=== PATIENT | female | born 1995 | race Hispanic/Latino ===

== ENCOUNTER 2017-01-24 20:25 | Emergency (ER) | payer OTHER ==
[~2017-01-24] VITALS: Ht 167.6 cm; Wt 68.2 kg
[2017-01-24 20:39] VITALS: BP 115/73; PULSE 71; RESP 16; O2SAT 100
--- NOTE | 2017-01-24 21:26 | ED.REPORT ---
HPI-Abd Pain F Under 40 Date of Service January 24, 2017 ED Provider: Dr. Mike Busby M.D. A healthy 21 year old female at approximately ten weeks presents to the ED with intermittent RUQ abdominal pain onset yesterday. The pain radiates into her right flank and right thigh. Associated symptoms include nausea, chills , and generalized abdominal cramping. The patient denies vomiting, diarrhea, hematochezia, melena, vaginal bleeding, dysuria, hematuria, constipation, acid reflux sensation, or other symptoms. The patient's last normal menstrual period was 11/10/16. Nursing Notes Stated Complaint: SIDE PAIN Chief Complaint: Female Abdominal Pain Nursing Notes Reviewed: Yes Allergies: Coded Allergies: No Known Allergies (Unverified , 01/24/17) General Time Seen by MD: 21:25 Chief Complaint Abdominal pain Hx Obtained From: Patient Arrived By: Walk-in Onset Occurred: Yesterday Symptom Duration: Intermittent Location: : Diffuse (Cramping): RUQ Quality: Painful Radiation: : Flank left Severity: Current: Moderate Severity: Maximum: Moderate Status: Positive - ED urine HCG Para: 2 Pertinent Negative: Relieved by nothing Context Related History: Reports: Current Recent Healthcare: No recent doctor visit Past Medical History Past Medical History None reported Past Surgical History None reported Smoking History Unknown if Ever Smoker Social History Other Social History: Good social support Ambulatory Status Independent Review of Systems Review of Systems Note: - Acid reflux sensation Constitutional: Reports: Chills, Denies: Fever Respiratory: Denies: Non-productive cough, Shortness of breath GI: Reports: Abdominal pain (RUQ, generalized cramping), Nausea, Denies: Constipation, Diarrhea, Hematochezia, Melena, Vomiting Female: Reports: Flank pain (Right), Denies: Dysuria, Hematuria, Vaginal bleeding - abnl Musculoskeletal: Reports: Extremity pain (Right thigh) Complete sys rev & neg: except as marked. Physical Exam Initial Vital Signs Vital Signs (First) Date Time Temp Pulse Resp B/P Pulse Ox O2 Delivery O2 Flow Rate FiO2 01/24/17 20:39 36.8 71 16 115/73 100 Room Air Initial VS: Reviewed Head / Eyes: Atraumatic, Normocephalic ENT: Conjunctiva normal, No scleral icterus Neck: Supple, Full range of motion Skin: Warm, Dry, No cyanosis Neurologic: Alert, Oriented, Nonfocal Psychiatric: Mood/affect normal, Behavior normal, Normal thought content General/Constitutional: Awake, Alert Respiratory / Chest: Breath sounds NL, Breath sounds = bilat, No respiratory distress Cardiovascular: Heart rate NL, Regular rhythm, Heart sounds NL Abdomen: Soft Tenderness/Guarding/Rebound: Positive: Tender LLQ..., Negative: Tender RUQ... Back: Inspection NL, No CVA tenderness Interpretation & Diagnostics Bedside US: Bile duct normal in size. Contracted gallbladder with some density that may be gallstones. URINE : Positive URINE DIPSTICK: Bedside Urine Specific [place] * 1.020 Bedside Urine pH * 5 Bedside Urine Leukocyte Esterase * Negative Bedside Urine Nitrite * Negative Bedside Urine Protein * Negative Bedside Urine Glucose * Normal Bedside Urine Ketones * Negative Bedside Urine Urobilinogen * Normal Bedside Urine Bilirubin * Negative Bedside Urine Occult Blood * Negative Urine to Lab * Yes Lab Results Interpretation Result Diagram: 01/24/17212201/24/172122 Test 01/24/17 21:14 01/24/17 21:23 Urine Color Yellow (YELLOW) Urine Appearance Clear (CLEAR,HAZY) Urine pH 6.0 (5.0-8.0) Urine Specific [place] 1.024 (1.003-1.035) Urine Protein Negativemg/dL (NEG,TRACE) Urine Glucose (UA) Negativemg/dL (NEGATIVE) Urine Ketones Negativemg/dL (NEGATIVE) Urine Occult Blood Negative (NEGATIVE) Urine Nitrite Negative (NEGATIVE) Urine Bilirubin Negative (NEGATIVE) Urine Urobilinogen Normalmg/dL (NORMAL) Urine Leukocyte Esterase Negative (NEGATIVE) Urine RBC 0-2/hpf (0-2) Urine WBC 0-5/hpf (0-5) Urine Epithelial Cells Many/hpf (NONE-MOD) Urine Crystals None seen (NONE SEEN) Urine Bacteria Moderate/hpf (NONE-FEW) Urine Hyaline Casts None/lpf (NONE) Urine Granular Casts None seen (NONE SEEN) Urine Waxy Casts None seen (NONE SEEN) Urine Red Blood Cell Casts None seen (NONE SEEN) Urine White Blood Cell Casts None seen (NONE SEEN) Urine Mucus None seen (None Seen) Urine Trichomonas None seen (NONE SEEN) Urine Yeast None (NONE SEEN) Urine Culture Reflexed Indicated Hold Urine Received (Received) White Blood Count 9.3th/mm3 (3.8-10.1) Red Blood Count 4.61mil/mm3 (3.90-5.20) Hemoglobin 13.1g/dL (12.0-15.6) Hematocrit 39.3% (35.0-46.0) Mean Corpuscular Volume 85.2fL (81-100) Mean Corpuscular Hemoglobin 28.4pg (27.0-35.0) Mean Corpuscular Hemoglobin Concent 33.3% (32.0-37.0) Red Cell Distribution Width 13.7% (12.3-15.4) Platelet Count 234bil/L (150-400) Neutrophils (%) (Auto) 60.6% (40-74) Lymphocytes (%) (Auto) 31.3% (14-46) Monocytes (%) (Auto) 6.7% (4-12) Eosinophils (%) (Auto) 1.0% (0-5) Basophils (%) (Auto) 0.2% (0-3) Sodium Level 136mEq/L (134-144) Potassium Level 4.1mEq/L (3.5-5.2) Chloride Level 99mEq/L (97-108) Carbon Dioxide Level 25mmol/L (18-29) Blood Urea Nitrogen 15mg/dL (6-20) Creatinine 0.65mg/dL (0.57-1.00) Estimat Glomerular Filtration Rate 166mL/min (>59) Glucose Level 102mg/dL (60-99) Calcium Level 9.8mg/dL (8.5-10.1) Magnesium Level 2.2mg/dL (1.6-2.6) Total Bilirubin 0.3mg/dL (0.0-1.2) Aspartate Amino Transf (AST/SGOT) 23U/L (0-50) Alanine Aminotransferase (ALT/SGPT) 18U/L (0-32) Alkaline Phosphatase 65U/L (25-150) Total Protein 7.3g/dL (6.4-8.4) Albumin 4.2g/dL (3.4-5.0) Lipase 29U/L (13-60) HCG Beta Subunit [id number]/mL Hold Ervin Top Tube Received (Received) US Focused OB IMPRESSION: 6 week 3 day single viable IUP. Normal ovaries. Report transmitted to ED by Roberto Morgan M.D. at 01/24/2017 - 10:54:00 PM PDT Exam Performed by: Allied health pract Exam Interpreted by: Radiologist Re-Eval/Medical Decision Med Decision/Clinical Course Med Decision/Clinical Course: 21-year-old currently unknown dates, presents with right upper quadrant abdominal pain and some moderate left lower quadrant abdominal pain. Character of her upper quadrant pain suggest gallstones. Her gallbladder is quite contracted and cannot be evaluated effectively with ultrasound presently. Ultrasound of the fetus was accomplished and shows a six week three day IUP with heartbeat of 109 and no evidence of ectopic , or free fluid. She plans follow up with [facility] regarding her . Plan ultrasound of the right upper quadrant and fasting state to evaluate for gallstones. Suspect intermittent biliary colic is the issue. No evidence of hematuria, stone, or UTI. Discharged in stable condition. Re-Evaluation/Progress : Time of Eval: 22:48 Patient Status: Condition improved Re-Evaluation/Progress Note: Bedside US performed. Discussed with patient lab and US results, diagnosis, and plan for discharge. Follow-up and return to the ER instructions given. Patient agrees with plan for care and all questions were addressed. Counseled Regarding: Diagnosis, Lab results, Need for follow-up, When/why to return to ED Discharge & Departure Primary Impression: Abdominal pain Abdominal location: unspecified location Qualified Code: R10.9 - Unspecified abdominal pain Additional Impressions: First trimester Biliary colic Disposition: Home Discharge Condition All VS Reviewed: Yes Condition: Improved Patient Instructions: Acute Abdominal Pain (ED), Biliary Colic (ED), Low Fat Diet (ED) Additional Instructions: You have a normal-appearing at six weeks and three days. I suspect you have gallstones, but cannot prove that at this point. Ultrasound is done as a fasting test in the morning, to avoid contracted gallbladder, as was present tonight. Call first thing in the morning to arrange follow-up ultrasound this morning. Do not eat anything or drink anything after midnight tonight. Follow-up with local physician at [facility] residency clinic and at the women's clinic Return if any immediate issues, such as worsening pain, vomiting, bleeding, or other new symptoms. Referrals: NOPCP (PCP) [facility],JAYLA Byrd Attestation Portions of this note were transcribed by Shital King. I, Dr. Busby, personally performed the history, physical exam, and medical decision-making; I reviewed and confirmed the accuracy of the information in the transcribed note. Signed by: Rochelle Glass, 01/25/2017, 00:45 copies to: [facility] Residency Clinic; [facility],[place] Mike Meier MD January 24, 2017 21:26 SHITAL KING January 24, 2017 21:35
[2017-01-24 21:33] LABS: BASOPHILS % (AUTO) 0.2 % (0-3); MONOCYTES % (AUTO) 6.7 % (4-12); Mean Corpuscular Hemoglobin 28.4 pg (27.0-35.0); Mean Corpuscular Volume 85.2 fL (81-100); NEUTROPHILS % (AUTO) 60.6 % (40-74); Platelet Count 234 bil/L (150-400)
[2017-01-24 21:58] LABS: Magnesium 2.2 mg/dL (1.6-2.6)
[2017-01-24] MEDS ORDERED: Magnesium Hydroxide 10 mL Oral Concentration PO ONE (23:00)
[2017-01-24 23:12] LABS: APPEARANCE,URINE CLEAR (CLEAR,HAZY); COLOR,URINE YELLOW (YELLOW); OCCULT BLOOD,URINE NEGATIVE (NEGATIVE); UROBILINOGEN,URINE NORMAL (NORMAL)
--- NOTE | 2017-01-25 08:21 | DRSVH ---
PROCEDURE: US OB<14 WKS INDICATIONS: 10 weeks, left adnexal pain OUTSIDE/PRIOR DATING DATA: Last menstrual period (LMP): 12/11/16. LMP-based estimated date of delivery (CHETNA): 09/17/17. First dating scan (date and location): This examination. Estimated date of delivery (CHETNA) from first dating scan: 09/16/17. TECHNIQUE: Real-time scanning was performed of the fetus and maternal pelvic organs, with image documentation. Endovaginal scanning was also performed to better visualize the fetus and maternal ovaries. COMPARISON: None. FINDINGS: Embryo: [employer] Ultrasound Procedure Report [place] Rump Length: 5.80 mm Gestational Age (CRL): 6 weeks, 3 days Summary Fetus Summary Heart Rate: 109 bpm Comments: A normal yolk sac is noted. No perigestational bleeds. Measurement variability in dating: +/- 4 weeks by LMP, +/- 7 days by mean sac diameter (use before 6 weeks gestation if crown-rump length not able to be measured), +/- 5 days by crown-rump length (6-12 weeks gestation). Maternal organs: Ovaries are grossly unremarkable. Limited images through the kidneys demonstrate n o hydronephrosis. IMPRESSION: Single living intrauterine fetus, with an CHETNA of 09/16/17, concordant with LMP as above Dictated by: Adán Sadler M.D. on 01/25/2017 at 8:16 Approved by: Adán Sadler M.D. on 01/25/2017 at 8:20
== END 2017-01-24 23:09 | disposition home or self-care (01) ==
LOC: SED 20:25
DX: O99.611 Diseases of the digestive system complicating pregnancy, first trimester (principal); K80.50 Calculus of bile duct without cholangitis or cholecystitis without obstruction; Z3A.01 Less than 8 weeks gestation of pregnancy

== ENCOUNTER 2017-02-27 21:17 | Emergency (ER) | payer OTHER ==
[~2017-02-27] VITALS: Ht 167.6 cm; Wt 66.8 kg
[2017-02-27 21:20] VITALS: BP 114/81; PULSE 85; RESP 16; O2SAT 99
--- NOTE | 2017-02-27 21:59 | ED.REPORT ---
HPI-Abd Pain F Under 40 Date of Service Feb 27, 2017 ED Provider: Fransico Manning DO Pt is an 11 week 21 year old female with a history of miscarriage (1x) who presents to the ED with exacerbated abdominal cramping onset today. She denies vaginal bleeding. The pt was seen in the clinic today for abdominal cramping, and they were unable to find a heartbeat. The pt reports that that she does not know her blood type. Nursing Notes Stated Complaint: VERY BAD CRAMPS/ 11 WKS Chief Complaint: Female Abdominal Pain Nursing Notes Reviewed: Yes Allergies: Coded Allergies: ibuprofen (Unverified Allergy, Unknown, 02/27/17) General Time Seen by MD: 21:59 Chief Complaint Abdominal pain Hx Obtained From: Patient Arrived By: Walk-in Sudden in Onset?: No Onset Occurred: 5 - 8 hours ago Symptom Duration: Since onset Location: : Diffuse Quality: Cramping, Painful Severity: Current: Moderate Severity: Maximum: Moderate Recent Healthcare: Recent doctor visit Similar Sx Previous: Yes Past Medical History Past Medical History Miscarriage - 1x Past Surgical History None reported Smoking History Unknown if Ever Smoker Social History Alcohol Use: Denies alcohol use Drug Use: Denies drug use Other Social History: Good social support Ambulatory Status Independent Review of Systems Constitutional: Denies: Fever Respiratory: Denies: Non-productive cough GI: Reports: Abdominal pain Female: Denies: Vaginal bleeding - abnl Complete sys rev & neg: except as marked. Physical Exam Initial Vital Signs Vital Signs (First) Date Time Temp Pulse Resp B/P Pulse Ox O2 Delivery O2 Flow Rate FiO2 02/27/17 21:20 36.2 85 16 114/81 99 Room Air Initial VS: Reviewed Head / Eyes: Atraumatic, Normocephalic, PERRL ENT: Mucous membranes moist, Conjunctiva normal, No scleral icterus Neck: Supple, Full range of motion Extremities: Vascular intact, Neuro intact Skin: Warm, Dry, No cyanosis Neurologic: Alert, Oriented, Nonfocal Psychiatric: Mood/affect normal, Behavior normal General/Constitutional: Awake, Alert, Cooperative, Not toxic appearing Respiratory / Chest: Atraumatic, Breath sounds NL, Breath sounds = bilat Cardiovascular: Heart rate NL, Regular rhythm, Heart sounds NL Abdomen: Atraumatic, Soft, Non-tender Abdomen is normal - not bleeding and no contractions. Back: Atraumatic, Full range of motion Interpretation & Diagnostics US PELVIC AND TRANSVAGINAL SONOGRAM: IMPRESSION: 1. Intrauterine gestation with no detected heart rate measuring smaller than expected compared with last menstrual period dates and dates from the first ultrasonographic examination. Findings are most consistent with demise. 2. The lead neurodiagnostic technologist discussed these findings with Jessica Mac RN at 12:30 pm on 02/27/2017. Dictated by: Carter Wade M.D. on 02/27/2017 at 13:33 Lab Results Interpretation Result Diagram: 02/27/17 2206 02/27/17 2206 Test 02/27/17 22:06 White Blood Count 6.7th/mm3 (3.8-10.1) Red Blood Count 4.61mil/mm3 (3.90-5.20) Hemoglobin 13.6g/dL (12.0-15.6) Hematocrit 40.7% (35.0-46.0) Mean Corpuscular Volume 88.3fL (81-100) Mean Corpuscular Hemoglobin 29.5pg (27.0-35.0) Mean Corpuscular Hemoglobin Concent 33.4% (32.0-37.0) Red Cell Distribution Width 14.8% (12.3-15.4) Platelet Count 199bil/L (150-400) Neutrophils (%) (Auto) 54.4% (40-74) Lymphocytes (%) (Auto) 37.1% (14-46) Monocytes (%) (Auto) 5.3% (4-12) Eosinophils (%) (Auto) 3.0% (0-5) Basophils (%) (Auto) 0.1% (0-3) Sodium Level 138mEq/L (134-144) Potassium Level 4.2mEq/L (3.5-5.2) Chloride Level 100mEq/L (97-108) Carbon Dioxide Level 23mmol/L (18-29) Blood Urea Nitrogen 13mg/dL (6-20) Creatinine 0.69mg/dL (0.57-1.00) Estimat Glomerular Filtration Rate 155mL/min (>59) Glucose Level 97mg/dL (60-99) Calcium Level 9.0mg/dL (8.5-10.1) Total Bilirubin 0.2mg/dL (0.0-1.2) Aspartate Amino Transf (AST/SGOT) 15U/L (0-50) Alanine Aminotransferase (ALT/SGPT) 14U/L (0-32) Alkaline Phosphatase 58U/L (25-150) Total Protein 6.8g/dL (6.4-8.4) Albumin 3.7g/dL (3.4-5.0) HCG Beta Subunit 8858mIU/mL Hold Ervin Top Tube Received (Received) Re-Eval/Medical Decision Med Decision/Clinical Course Based on ultrasound from earlier today and a dropping quantitative hCG this is most likely demise. Virginie is not yet having bleeding so therefore she is not in active labor. She does not have any clinical contractions. Her belly is very benign. Her Rh is positive. At this time it is more or less a wait and see. I will provide her with pain medicine and then she developed some cramping." O B follow-up. Return if any problems or any new or worrisome symptoms. Routine opiate warnings given. Ectopic highly unlikely. Source of Hx: Old records Re-Evaluation/Progress : Time of Eval: 22:41 Re-Evaluation/Progress Note: Pt rechecked. Informed pt of plan for discharge. Pt understands and agrees with plan for discharge. F/U instructions and RTER warnings given. All questions addressed. Counseled Regarding: Diagnosis, Lab results, Need for follow-up, When/why to return to ED Discharge & Departure Primary Impression: First trimester Additional Impressions: Threatened Abdominal pain Abdominal location: lower abdomen, unspecified Qualified Code: R10.30 - Lower abdominal pain, unspecified Disposition: Home Discharge Condition All VS Reviewed: Yes Condition: Stable Patient Instructions: Acute Abdominal Pain (ED) Additional Instructions: The ultrasound from earlier today is highly suspicious for demise. No cardiac activity was seen. Your quantitative hCG seems to be coming down as well. These are all indicators of what is most likely going to be a miscarriage. There is nothing to do right now. For the cramping you may take 1-2 [place] every 6 hours. Try [id number] Benadryl as directed for any nausea from the [place]. Do not drive or drink alcohol or consume acetaminophen tonight or while taking the [place]. Your Rh is positive. I would like you to have a follow-up with your picc nurse in repeat ultrasound as we discussed. Return to the Emergency department if you have any heavy bleeding or you pass any tissue or have any new or worrisome symptoms. Referrals: Sia Mendez (PCP) Rochelle Attestation Portions of this note were transcribed by Gladis Gomez. I, Dr. Manning personally performed the history, physical exam and medical decision-making; I reviewed and confirmed the accuracy of the information in the transcribed note. Signed by: Rochelle Green, 02/27/17 and 23:50. copies to: Sia Mendez Todd P DO Feb 27, 2017 21:59 Gladis Fox Feb 27, 2017 22:48
[2017-02-27] MEDS ORDERED: HYDROcodone-APAP 5-325 mg Tablet PO ONE (22:00)
[2017-02-27 22:17] LABS: BASOPHILS % (AUTO) 0.1 % (0-3); MONOCYTES % (AUTO) 5.3 % (4-12); Mean Corpuscular Hemoglobin 29.5 pg (27.0-35.0); Mean Corpuscular Volume 88.3 fL (81-100); NEUTROPHILS % (AUTO) 54.4 % (40-74); Platelet Count 199 bil/L (150-400)
[2017-02-27] MEDS ORDERED: _HYDROcodone/APAP 5-325 mg Tablet PO PRN (22:50)
[2017-02-28 00:22] VITALS: BP 116/72; PULSE 80; RESP 14; O2SAT 99
[2017-03-01] MEDS ORDERED: OXYC1TAB24 PO (14:58)
== END 2017-02-28 00:04 | disposition home or self-care (01) ==
LOC: SED 21:17
DX: O20.0 Threatened abortion (principal); R10.30 Lower abdominal pain, unspecified; Z3A.11 11 weeks gestation of pregnancy; Z88.6 Allergy status to analgesic agent
CPT/HCPCS: 36415; 80053; 84702; 85025; 99284; G0463

== ENCOUNTER 2017-03-01 13:23 | Day surgery (SDC) | payer OTHER ==
[~2017-03-01] VITALS: Ht 167.6 cm; Wt 36.2 kg
[2017-03-01] VITALS (11 sets, daily range): BP systolic 101–124; BP diastolic 57–74; PULSE 57–95; RESP 9–28; O2SAT 95–100
--- NOTE | 2017-03-01 13:07 | PCM.HPANE ---
Patient Data Surgeon Admitting Provider: Attending Provider:Haily Rangel MD Primary Care Physician:Sia Mendez Other Provider:Samuel Whittaker Anesthesia Reason for Visit Missed Ab Ht/WT & BMI Body Mass Index Allergies Coded Allergies: ibuprofen (Unverified Allergy, Unknown, 02/27/17) Past Anesthesia History Anesthesia History: Denies:: Abnormal Airway, Anesthesia Reactions, Difficult Intubation, Fam Anesthesia Reaction, Fam Malignant Hypertherm, Malignant Hyperthermia Diabetes History Hx Diabetes?: No History History of ENT Problems?: No HEENT History: Denies:: Abnormal Airway Cataracts Difficult Intubation Dysphagia Glaucoma Hearing Problem Sinus Problem TMJ Denture Type: None Teeth Condition: Within Normal Limits Hx of Heart Problems?: No Cardiovascular History: Denies:: AICD Abdominal Aortic Aneurism Atrial Fibrillation Cardiac Surgery Chest Pain Congestive Heart Failure Coronary Artery Disease Edema Heart Murmur Hypertension Irregular Heartbeat Pacemaker Peripheral Vascular Rheumatic Fever Thrombophlebitis Valvular Heart Disease Hx of Respiratory Problem?: No Respiratory History: Denies:: Asthma COPD Chest Surgery Cough Dyspnea Emphysema Hemoptysis Oxygen Administration Pneumonia Pulmonary Embolism Tuberculosis Use of C-PAP Machine Use of Inhalers / NEBS Hx Neurologic Problems?: No Neurological History: Denies:: Alzheimer's Disease CVA Dementia Dizziness Headaches Multiple Sclerosis Parkinson's Disease Peripheral Neuropathy Seizures TIA Hx of GI Problems?: No Gastrointestinal History: Denies:: Cirrhosis Diverticulitis Gall Bladder Disease Gastroesphageal Reflux Gastrointestinal Bleeding Heartburn Hepatitis Hiatal Hernia Liver Disease Rectal Bleeding Hx of Problems?: No Genitourinary History: Denies:: HX of Hemodialysis Kidney Stones Urinary Tract Infection HX of Peritoneal Dialysis: No Female Hx: Denies:: Currently Endometriosis Pelvic Inflammatory Problems with Breasts? Skin History: Denies:: History Skin Disorders? Pressure Ulcers Hx Musculoskeletal Problems?: No Hx of Psycho/Social Problems?: No Hx Surgeries?: No Hx Any Other Health Problems?: No Hx Diabetes: No Hx Alcohol Use: NoHx Substance Use: No Smoking Status: Unknown if Ever Smoker Stop/Bang Risk Assessment Category Category 1A: Patient has history of documented sleep apnea, and HAS NOT received any narcotic, sedative or anesthesia administration during this stay. Category 1B: Patient has history of documented sleep apnea, and HAS received any narcotic , sedative or anesthesia administration during this stay Category 2: Patient has SUSPECTED Obstructive Sleep Apnea, and HAS received any narcotic , sedative or anesthesia administration during this stay. Category 3: Patient has SUSPECTED Obstructive Sleep Apnea and HAS NOT received narcotic, sedative or anesthesia administration during this stay. Category 4: Outpatient in Procedural Areas with known sleep apnea or who screen positive for High Risk via the STOP/BANG questionnaire. Exam Exam General Appearance: Alert, Oriented X3, Cooperative HEENT/AIRWAY: MP 1 Lungs: Clear to Auscultation Heart: Exam Unremarkable Plan Impression Patient chart reviewed, patient interviewed and anesthestic plan with risks, benefits, and alternatives discussed, and informed consent obtained. ASA Physical Status: ASA2 Mod Systemic Disease Anesthetic Plan: GA Bene/Risks/Altern/Consents: Yes HP Complete Prior to Induction: Yes Warren Koch MD Mar 01, 2017 13:07
[~2017-03-01 13:23] MED LIST: LORazepam 1 mg Tablet PO PRN; Lactated Ringer's 1,000 ML IV ONE; fentaNYL-PF 50 mCg/mL 2 mL Inj IVPUSH PRN
[2017-03-01] MEDS ORDERED: Ondansetron 2 mg/mL 2 mL Inj ONE (13:24)
[2017-03-01] MEDS ORDERED: Propofol 10,000 mCg/mL 20 mL Inj ONE (13:24)
[2017-03-01] MEDS ORDERED: Dexamethasone 4 mg/mL Inj ONE (13:24)
[2017-03-01] MEDS ORDERED: fentaNYL-PF 50 mCg/mL 2 mL Inj ONE (13:24)
[2017-03-01] MEDS ORDERED: Lactated Ringer's 1,000 ML IV ONE ×2 (13:55→14:13)
[2017-03-01] MEDS ORDERED: Lactated Ringer's 500 ML IV PRN (14:07)
[2017-03-01] MEDS ORDERED: Lactated Ringer's 1,000 ML IV SCH (14:07)
--- NOTE | 2017-03-01 14:07 | PCM.DIGYN ---
Surgical Discharge Instruction Dates of Hospitalization Date of Hospital Admission Providers Admitting Physician: Primary Care Physician: Bjorn Attending Physician: Haily Rangel MD Diet Discharge Diet: No restrictions Activity Discharge Activity-General: Activity as pain allows, Activity as energy allows , No lifting >15 pounds for 2 weeks, No driving while taking narcotic Dressing and Incisional Care Hygiene: May shower, NO bathtub, hot tub or whirlpool Additional Instructions Discharge Instructions Please call with severe pain, temperature greater than 100.5 degrees, malodorous vaginal discharge or heavy vaginal bleeding filling more than a pad per hour. Follow Up Plan Follow-up Provider (F9): Haily Rangel MD Follow-up appointment: Weeks (2) Call your provider for: Fever, Chills, Shortness of breath, Heavy vaginal bleeding, Increasing pain Haily Rangel MD Mar 01, 2017 14:07
[2017-03-01] MEDS ORDERED: Atropine 0.4 mg/mL Inj IVPUSH PRN (14:10)
[2017-03-01] MEDS ORDERED: EPHEDrine Sulfate 50 mg/mL Inj IVPUSH PRN (14:10)
[2017-03-01] MEDS ORDERED: Phenylephrine 10,000 mCg/mL Inj IVPUSH PRN (14:10)
[2017-03-01] MEDS ORDERED: Labetalol 5 mg/mL 4 mL Inj IV PRN (14:10)
[2017-03-01] MEDS ORDERED: hydrALAZINE 20 mg/mL Inj IVPUSH PRN (14:10)
[2017-03-01] MEDS ORDERED: Dexamethasone 4 mg/mL Inj IVPUSH PRN (14:10)
[2017-03-01] MEDS ORDERED: Ondansetron 2 mg/mL 2 mL Inj IVPUSH PRN ×2 (14:10→14:55)
[2017-03-01] MEDS ORDERED: oxyCODONE-Acetamin 5-325 mg Tablet PO PRN (14:55)
[2017-03-01] MEDS ORDERED: diphenhydrAMINE 25 mg Capsule PO PRN (14:55)
[2017-03-01] MEDS ORDERED: MetoCLOpramide 5 mg/mL 2 mL Inj IVPUSH PRN (14:55)
[2017-03-01] MEDS ORDERED: OXYC1TAB24 PO (14:58)
--- NOTE | 2017-03-01 15:02 | PCM.ANEP1 ---
Post Anesthesia PACU Phase 1 Assessment Vital Signs Vital Signs Date Time Temp Pulse Resp B/P Pulse Ox O2 Delivery O2 Flow Rate FiO2 03/01/17 13:52 36.2 66 16 124/74 100 Room Air Anesthetic Administered: GA Level of Alertness: Awake, talking WATERS's with Equal Strength: Yes Pain: Yes Nausea or Vomiting: No CV Function & Hydration Stable: Yes Airway Device: Oxygen Delivery: Room Air Lungs: Normal Air Movement PACU Phase 2 Assessment Complications: No Follow up Care: No Patient Instructions Provided: N/A Warren Koch MD Mar 01, 2017 15:02
[2017-03-01] MEDS: fentaNYL-PF 50 mCg/mL 2 mL Inj IVPUSH PRN ×3 (15:19→15:39)
[2017-03-01] MEDS: HYDROmorphone 1 mg/mL Inj IVPUSH PRN ×3 (15:19→15:51)
--- NOTE | 2017-03-01 15:24 | OP ---
[address] [address] OPERATIVE REPORT PATIENT: ERNESTO MC : 1995 MR#: [id number] ADMIT: 03/01/2017 JOB ID: [id number] DATE OF SURGERY: 03/01/2017 PREOPERATIVE DIAGNOSIS(ES): A 9-week missed . POSTOPERATIVE DIAGNOSIS(ES): A 9-week missed . PROCEDURE PERFORMED: Suction dilation and curettage. SURGEON: Haily Rangel MD ANESTHESIA: General endotracheal anesthesia. ESTIMATED BLOOD LOSS: 300 cc FLUID REPLACEMENT: 500 cc of crystalloid. FINDINGS: A 12-week size uterus. Products of conception. COMPLICATIONS: None apparent. INDICATIONS: This is a 21-year-old, G4, P2-0-2-2 female, who presented to clinic three days ago for followup of a missed . She had an early with normal ultrasound at six weeks gestation. She began having increasing abdominal cramping and so a repeat ultrasound was completed at 12 weeks which showed demise at approximately nine weeks gestational age. She presented to our clinic to discuss treatment options and elected to proceed with a suction dilation and curettage. She was added on to the surgical schedule on the to undergo the above-stated procedure. Her medical history was otherwise uncomplicated. She had previously had one prior miscarriage not requiring any surgical management. She was sent over to Day Surgery where she was consented to undergo the procedure. Risks, benefits and alternatives were reviewed and she elected to proceed. Her blood type was Rh positive. PROCEDURE IN DETAIL: The patient was taken to the operating room. She was placed in dorsal lithotomy position, prepped and draped in the usual sterile fashion after anesthesia was administered. Her uterus was 12 week size. Her cervix was grasped with a tenaculum and she sounded to 13 cm. She was then serially dilated to allow a size 10 Hegar dilator, and a size 10 suction curette. The suction was tested and noted to have a pressure around 60 mmHg and the suction curette was then introduced into the uterus to the level of the uterine fundus and then several suction curette passes were completed with removal of the products of conception. After no further products of conception were removed through the suction curette, a sharp curettage was then completed until a gritty cry was felt throughout the entirety of the uterine cavity. The suction curette was then reintroduced and again the entirety of the uterine cavity was curetted without any remaining tissue removed. She did have some brisk uterine bleeding, so 0.2 of Methergine was given IM intraoperatively with good hemostasis following. The tenaculum was then removed from the cervix and the tenaculum sites were rendered hemostatic using silver nitrate. All sponge, needle, and instrument counts were correct at the completion of the procedure, patient tolerated procedure well, recovered in PACU. OLVIN
--- NOTE | 2017-03-04 11:46 | PATH ---
SURGICAL PATHOLOGY Attending Physician:Haily Rangel, CASE STATUS: Signed Out PATIENT NAME: ERNESTO MC PID: [id number] : 1995 DATE COLLECTED:03/01/2017 00:00 SPECIMEN: Products of conception CLINICAL HISTORY: INCOMPLETE/MISSED 1). CONTENTS OF CONCEPTION FINAL DIAGNOSIS: 1.PRODUCTS OF CONCEPTION: IMMATURE PLACENTAL TISSUE AND INFLAMED DECIDUA, CONSISTENT WITH SPONTANEOUS . NO EVIDENCE OF MALIGNANCY. ICD10 O02.1 GROSS DESCRIPTION: The specimen is received in formalin, labeled with the patient's name, sublabeled as contents of conception, and consists of multiple fragments red-brown spongy hemorrhagic tissue (12.5 x 5.2 x 1.3 cm in aggregate). No tissue is identified. Section code: (A-D) tissue, fraud representative. 03/02/17 JM MICRO DESCRIPTION: See diagnosis. ICD-9 CODES: CPT CODES: 1: 12340 Electronically Signed Out Tamra Corea MD [facility] [address], [place] [address] Technical component performed at [facility], [facility] [address], [place], [address]
== END 2017-03-01 23:59 | disposition home or self-care (01) ==
LOC: SAS 13:23
PROVIDERS: ATTEND Obstetrics & Gynecology
PROC: 10D17ZZ Extraction of Products of Conception, Retained, Via Natural or Artificial Opening (ICD-10-PCS; principal; 2017-03-01 14:30)
DX: O02.1 Missed abortion (principal)
CPT/HCPCS: 59820; J1100; J1170; J2175; J2250; J2270; J2405; J3010; J7120

== ENCOUNTER 2017-03-28 18:27 | Emergency (ER) | payer SELFPAY ==
[~2017-03-28] VITALS: Ht 167.6 cm; Wt 65.0 kg
[~2017-03-28 18:27] MED LIST changes: -LORazepam 1 mg Tablet PO PRN; -Lactated Ringer's 1,000 ML IV ONE; +OXYC1TAB24 PO; -fentaNYL-PF 50 mCg/mL 2 mL Inj IVPUSH PRN
[2017-03-28 18:33] VITALS: BP 130/82; PULSE 84; RESP 10; O2SAT 97
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
== END 2017-03-28 19:15 | disposition home or self-care (01) ==
LOC: SED 18:27
DX: S00.33XA Contusion of nose, initial encounter (principal); W50.1XXA Accidental kick by another person, initial encounter; Y93.66 Activity, soccer; Y92.019 Unspecified place in single-family (private) house as the place of occurrence of the external cause; Y99.8 Other external cause status; R51 Headache; Z88.6 Allergy status to analgesic agent

== ENCOUNTER 2017-06-02 20:46 | Emergency (ER) | payer SELFPAY | END 2017-06-02 20:52 | disposition left against medical advice (07) | LOC: SED 20:46 | DX: S09.90XA Unspecified injury of head, initial encounter (principal); Z53.21 Procedure and treatment not carried out due to patient leaving prior to being seen by health care provider ==